=== PATIENT | male | born 1995 | race Caucasian/White ===

== ENCOUNTER 2024-06-03 15:00 | Day surgery (SDC) | payer SELFPAY ==
[2024-06-02 13:00] VITALS: BMI 30.8
[2024-06-03] MEDS: BUPIVACAINE HCL/PF 0.5% (5MG/ML) 10 ML VIAL IJ ONE (17:38)
[2024-06-03] MEDS ORDERED: PROMETHAZINE HCL 25 MG/1 ML VIAL IVPB PRN (18:38)
[2024-06-03] MEDS: ACETAMINOPHEN 1000 MG/100 ML BAG IVPB ONE (18:45)
[2024-06-03] MEDS: oxyCODONE HCL 5 MG TABLET PO PRN (22:04)
[2024-06-03] MEDS: ONDANSETRON 4 MG/2 ML VIAL IVPUSH PRN (22:51)
[2024-06-03] MEDS: LACTATED RINGERS SOLUTION 1,000 ML IV SCH (23:37)
[2024-06-03] MEDS: DEXTROSE 5%-0.45% SALINE 1,000 ML IV SCH (23:38)
[2024-06-04 02:05] VITALS: RESP 18
[2024-06-04] MEDS: oxyCODONE HCL 5 MG TABLET PO PRN (06:20)
[2024-06-04 12:45] VITALS: BP 118/58; PULSE 80; TEMP 98
== END 2024-06-04 15:03 | disposition home or self-care (01) ==
LOC: JASUSAT 15:00 → EDSEX 17:30 → J8W 20:00 → JASUSAT 06-04 15:03
PROVIDERS: ATTEND Urology
PROC: 0VB90ZZ Excision of Right Testis, Open Approach (ICD-10-PCS; principal; 2024-06-03 17:30)
DX: C83.398 Diffuse large B-cell lymphoma of other extranodal and solid organ sites (principal)
CPT/HCPCS: 88309-TC; 88341-TC; 88342-TC; 94760; J0131